=== PATIENT | female | born 1960 | race Hispanic/Latino ===

== ENCOUNTER 2020-06-30 10:58 | Emergency (ER) | payer BC ==
[~2020-06-30] VITALS: Ht 162.6 cm; Wt 72.6 kg
== END 2020-06-30 11:40 | disposition home or self-care (01) ==
LOC: ER 11:20
DX: K64.4 Residual hemorrhoidal skin tags (principal); I10 Essential (primary) hypertension; E11.9 Type 2 diabetes mellitus without complications
CPT/HCPCS: 99282